=== PATIENT | male | born 1990 | race African-American/Black ===

== ENCOUNTER 2016-10-16 23:29 | Emergency (ER) | payer SELFPAY ==
[2016-10-17] MEDS ORDERED: DEXAMETHASONE SOD PHOS INJ 10 MG/1 ML VIAL IM ONE (02:04)
[2016-10-17] MEDS ORDERED: AMOXICILLIN TRIHYDRATE 500 MG CAPSULE PO ONE (02:05)
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
[2016-10-17 02:45] VITALS: BP 134/91
== END 2016-10-17 02:44 | disposition home or self-care (01) ==
LOC: ER 23:29
DX: J02.9 Acute pharyngitis, unspecified (principal); R59.1 Generalized enlarged lymph nodes; R51 Headache; M54.2 Cervicalgia; R07.0 Pain in throat
CPT/HCPCS: 99283; 96372; J1100

== ENCOUNTER 2018-03-30 13:59 | Emergency (ER) | payer BC ==
[2018-03-30] MEDS ORDERED: METOCLOPRAMIDE HCL ORAL SOLN 10 MG/10 ML UDCUP PO ONE (15:10)
[2018-03-30] MEDS ORDERED: MAG HYDROX/AL HYDROX/SIMETH SUSP 30 ML UDCUP PO ONE (15:10)
[2018-03-30] MEDS ORDERED: LIDOCAINE 2% VISCOUS SOLN 20 ML UDCUP PO ONE (15:10)
--- NOTE | 2018-03-30 15:18 | ER Document Report ---
ED Medical Screen (RME) - General Chief Complaint: Abdominal Pain Stated Complaint: ABDOMINAL PAIN Time Seen by Provider: 03/30/18 15:03 Information source: Patient TRAVEL OUTSIDE OF THE [place] IN LAST 30 DAYS: No - HPI Patient complains to provider of: abdominal pain Onset: Other - 27-year-old man with a 6-7-month history of pain in the left upper quadrant of his abdomen which he believes may be related to his spleen. He was told approximately 9 months prior that he may have strep throat but he should watch out for any swelling in his spleen and return in case of that. He is not seen any doctor for this since nothing is seem to make it any better or worse though he does try to drink some water which he feels like helps cool down the sensation. It does feel worse if he lays on that side of his stomach. Nothing seems to make it much better. He is never had any surgeries in the past, no known health problems, no allergies, denies any significant past medical history. - Related Data Allergies/Adverse Reactions: No Known Allergies Allergy (Verified 10/17/16 00:59) Past Medical History - General Information source: Patient - Social History Chew tobacco use (# tins/day): No Frequency of alcohol use: Rare Drug Abuse: Marijuana Renal/ Medical History: Denies: Hx Peritoneal Dialysis - Immunizations Immunizations up to date: Yes Hx Diphtheria, Pertussis, Tetanus Vaccination: Yes Review of Systems - Review of Systems -: Yes All other systems reviewed and negative Physical Exam - Vital signs Vitals: Temp Pulse Resp BP Pulse Ox 98.9 F 69 16 153/102 H 99 03/30/18 14:13 03/30/18 14:13 03/30/18 14:13 03/30/18 14:13 03/30/18 14:13 - General General appearance: Appears well In distress: None - HEENT Head: Normocephalic Eyes: Normal Conjunctiva: Normal Cornea: Normal Extraocular movements intact: Yes - Slight asymmetry in the eyes, amblyopia of the right eye Eyelashes: Normal - Respiratory Respiratory status: No respiratory distress Chest status: Nontender Breath sounds: Normal Chest palpation: Normal - Cardiovascular Rhythm: Regular Heart sounds: Normal auscultation Murmur: No - Abdominal Inspection: Normal Distension: No distension Tenderness: Nontender - Back Back: Normal - Extremities General upper extremity: Normal inspection, Nontender, Normal ROM, Normal strength General lower extremity: Normal inspection, Nontender, Normal ROM, Normal strength - Neurological Neuro grossly intact: Yes Cognition: Normal Orientation: AAOx4 [place] Coma Scale Eye Opening: Spontaneous [place] Coma Scale Verbal: Oriented [place] Coma Scale Motor: Obeys Commands [place] Coma Scale Total: 15 Speech: Normal Cranial nerves: Normal Cerebellar coordination: Normal Motor strength normal: LUE, RUE, LLE, RLE - Psychological Associated symptoms: Normal affect Course - Re-evaluation Re-evalutation: 03/30/18 15:45 27-year-old man with long-standing nonspecific abdominal pain which is helped with cold water, does feel like a fullness. Given that his abdominal examination is benign he is well-appearing he is not tried anything to help with this. Do not believe that he has appendicitis, cholecystitis, surgical abdomen. He may have reflux gastritis, he does not smoke but on occasion, does not drink alcohol does not drink acid drinks. However given his well appearance believe it is appropriate to attempt a conservative management will initiate treatment with a GI cocktail and reassess for symptom improvement. 03/30/18 16:41 On reassessment the patient's abdominal examination remains benign, he is well- appearing, able tolerate p.o. We will plan for a trial of presumptive treatment of reflux. We will plan for the patient undergo discharge with return precautions encouraged follow-up with his primary physicians he is in agreement with this plan at this time. - Vital Signs Vital signs: Temp Pulse Resp BP Pulse Ox 98.9 F 69 16 153/102 H 99 03/30/18 14:13 03/30/18 14:13 03/30/18 14:13 03/30/18 14:13 03/30/18 14:13 Doctor's Discharge - Discharge Clinical Impression: Reflux gastritis Abdominal pain Qualifiers: Abdominal location: left upper quadrant Qualified Code(s): R10.12 - Left upper quadrant pain Condition: Good Disposition: HOME, SELF-CARE Instructions: Abdominal Pain ([facility]) Additional Instructions: He was seen today in the emergency department for your abdominal pain. On evaluation including a physical exam, I believe that this is likely related to reflux though this is not definitive. You should try to take the medication prescribed to you as directed for the next week. If you continue to have pain worsening symptoms fevers chills inability to eat or drink he should return to the emergency room or go to an appointment with your primary physician. Prescriptions: Ranitidine HCl [Zantac 75 mg Tablet] 75 mg PO BID #40 tablet Forms: Elevated Blood Pressure
[2018-03-30 17:01] VITALS: BP 148/91
== END 2018-03-30 17:10 | disposition home or self-care (01) ==
LOC: ER 13:59
DX: K29.60 Other gastritis without bleeding (principal); K21.9 Gastro-esophageal reflux disease without esophagitis; R10.12 Left upper quadrant pain; H53.001 Unspecified amblyopia, right eye
CPT/HCPCS: 99283; J3490